=== PATIENT | female | born 1945 | race African-American/Black ===

== ENCOUNTER 2021-12-20 10:59 | Outpatient (CLI) | payer MEDICARE, SELFPAY ==
[2021-12-20 16:56] LABS: Cholesterol 234 mg/dL (0-200); HDL Direct 45 mg/dL; Triglycerides 102 mg/dL (<150)
[2021-12-20 17:07] LABS: LDL Cholesterol Direct 129 mg/dL
[2021-12-20 17:26] LABS: Thyroid Stimulating Hormone 0.931 uIU/mL (0.465-4.680)
[2021-12-23 06:23] LABS: Rapid Plasma Reagin Non-Reactive (NonReactive)
== END 2021-12-20 11:00 | disposition home or self-care (01) ==
LOC: ANHWCLAB 11:11
PROVIDERS: PCP Internal Medicine Infectious Disease; Referring Provider Internal Medicine Infectious Disease; Visit Provider Internal Medicine Infectious Disease
DX: E78.9 Disorder of lipoprotein metabolism, unspecified (principal); R41.3 Other amnesia
CPT/HCPCS: 36415; 80061; 82607; 84443; 86592

== ENCOUNTER 2022-09-09 10:11 | Outpatient (CLI) | payer MEDICARE, SELFPAY ==
--- NOTE | 2022-09-09 11:33 | ECG_ITS ---
Measurements Intervals [place] Rate: 90 P: 62 CO: 132 QRS: -30 QRSD: 83 T: 85 QT: 391 QTc: 480 Interpretive Statements SINUS RHYTHM VOLTAGE CRITERIA FOR LVH NONSPECIFIC T-WAVE ABNORMALITY BORDERLINE ECG NO PREVIOUS ECG AVAILABLE FOR COMPARISON Electronically Signed On 09-09-2022 16:22:14 PNEUMATIC [employer]ACK[employer] by Victor Hugo Lozada M.D.
[2022-09-09 11:58] LABS: Basophils Absolute Auto 0.1 K/mm3 (0.0-0.1); Basophils Percent Auto 1.3 % (0.2-1.2); Eosinophils Absolute Auto 0.2 K/mm3 (0-0.3); Eosinophils Percent Auto 3.8 % (0-4.4); Hemoglobin 13.9 g/dL (12.0-15.0); Immature Granulocyte Absolute 0.01 K/mm3 (0.00-0.031); Immature Granulocyte Percent A 0.2 % (0-0.5); Lymphocytes Absolute Auto 2.26 K/mm3 (0.9-3.2); Lymphocytes Percent Auto 40.7 % (18.3-44.2); Mean Corpuscular HGB Conc 31.6 g/dl (32-36); Mean Corpuscular Hemoglobin 26.5 pg (26-34); Mean Platelet Volume 11.9 fl (7.4-10.4); Monocytes Absolute Auto 0.4 K/mm3 (0.1-0.6); Monocytes Percent Auto 6.3 % (2.6-8.5); Neutrophils Absolute Auto 2.7 K/mm3 (1.3-6.7); Neutrophils Percent Auto 47.7 % (45.5-73.1); Platelet Count Result 212 k/mm3 (150-375); Red Blood Count 5.24 M/mm3 (4.2-5.4); Red Cell Distribution Width 13.8 % (11.5-14.5); White Blood Count 5.6 K/mm3 (4.5-10.0)
[2022-09-09 12:04] LABS: Albumin Level 3.9 g/dL (3.5-5.1)
[2022-09-09 12:24] LABS: Anion Gap 4 mmol/L (8-16); Blood Urea Nitrogen 16 mg/dL (7-17); Calcium 9.3 mg/dL (8.4-10.2); Carbon Dioxide 27 mmol/L (22-30); Chloride 104 mmol/L (98-107); Estimated Glomerular Filt Rate > 60; Glucose 372 mg/dL (65-110); Potassium 4.4 mmol/L (3.4-5.0); Sodium 135 mmol/L (137-145)
[2022-09-09 12:28] LABS: Urine Cotinine NEGATIVE
[2022-09-09 12:30] LABS: Hemoglobin A1C 11.4 % (<5.7)
== END 2022-09-09 10:12 | disposition home or self-care (01) ==
PROVIDERS: Anesthesiology; PCP Internal Medicine Infectious Disease; Visit Provider Orthopaedic Surgery
DX: M17.12 Unilateral primary osteoarthritis, left knee (principal); E11.9 Type 2 diabetes mellitus without complications; Z01.818 Encounter for other preprocedural examination; R94.31 Abnormal electrocardiogram [ECG] [EKG]
CPT/HCPCS: 36415; 80048; 80307; 82040; 83036; 85025; 86850; 86900; 86901; 87081; 93005

== ENCOUNTER 2023-01-21 08:39 | Outpatient (CLI) | payer MEDICARE, SELFPAY ==
[2023-01-21 15:18] LABS: Alanine Aminotransferase 16 U/L (6-35); Albumin Level 3.6 g/dL (3.5-5.1); Alkaline Phosphatase 94 U/L (38-126); Anion Gap 2 mmol/L (8-16); Aspartate Amino Transferase 26 U/L (14-36); Bilirubin,Total 0.4 mg/dL (0.2-1.3); Blood Urea Nitrogen 17 mg/dL (7-17); Calcium 8.9 mg/dL (8.4-10.2); Carbon Dioxide 30 mmol/L (22-30); Chloride 107 mmol/L (98-107); Cholesterol 142 mg/dL (0-200); Estimated Glomerular Filt Rate > 60; Glucose 177 mg/dL (65-110); HDL Direct 40 mg/dL; Potassium 3.9 mmol/L (3.4-5.0); Sodium 139 mmol/L (137-145); Triglycerides 98 mg/dL (<150)
[2023-01-21 15:29] LABS: LDL Cholesterol Direct 76 mg/dL
[2023-01-21 17:13] LABS: Creatinine Urine 169.1 mg/dL
[2023-01-21 17:16] LABS: MALB Creatinine Ratio 7.7 mg/g (0-30)
[2023-01-21 17:35] LABS: Hemoglobin A1C 11.7 % (<5.7)
[2023-01-21 18:06] LABS: Free T4 Free Thyroxine 1.16 ng/mL (0.78-2.19)
== END 2023-01-21 08:40 | disposition home or self-care (01) ==
LOC: ANHGOSHLAB 08:43
PROVIDERS: PCP Internal Medicine Infectious Disease; Visit Provider Internal Medicine Endocrinology, Diabetes & Metabolism
DX: E11.65 Type 2 diabetes mellitus with hyperglycemia (principal); E78.5 Hyperlipidemia, unspecified
CPT/HCPCS: 36415; 80053; 80061; 82043; 83036; 84439; 84443

== ENCOUNTER 2023-05-14 07:54 | Outpatient (CLI) | payer MEDICARE, SELFPAY ==
[2023-05-14 18:22] LABS: Basophils Absolute Auto 0.1 K/mm3 (0.0-0.1); Basophils Percent Auto 1.4 % (0.2-1.2); Eosinophils Absolute Auto 0.3 K/mm3 (0-0.3); Hematocrit 43.1 % (37.0-47.0); Hemoglobin 13.7 g/dL (12.0-15.0); Lymphocytes Absolute Auto 2.64 K/mm3 (0.9-3.2); Lymphocytes Percent Auto 47.3 % (18.3-44.2); Mean Corpuscular HGB Conc 31.8 g/dl (32-36); Mean Corpuscular Hemoglobin 26.8 pg (26-34); Mean Corpuscular Volume 84.3 fl (80-100); Mean Platelet Volume 12.1 fl (7.4-10.4); Monocytes Absolute Auto 0.4 K/mm3 (0.1-0.6); Monocytes Percent Auto 6.8 % (2.6-8.5); Neutrophils Absolute Auto 2.2 K/mm3 (1.3-6.7); Neutrophils Percent Auto 39.5 % (45.5-73.1); Platelet Count Result 260 k/mm3 (150-375); Red Blood Count 5.11 M/mm3 (4.2-5.4); Red Cell Distribution Width 13.8 % (11.5-14.5); White Blood Count 5.6 K/mm3 (4.5-10.0)
[2023-05-14 18:35] LABS: Anion Gap 10 mmol/L (8-16); Blood Urea Nitrogen 16 mg/dL (7-17); Calcium 9.7 mg/dL (8.4-10.2); Carbon Dioxide 23 mmol/L (22-30); Chloride 104 mmol/L (98-107); Cholesterol 250 mg/dL (0-200); Estimated Glomerular Filt Rate > 60; Glucose 65 mg/dL (65-110); HDL Direct 53 mg/dL; Potassium 4.4 mmol/L (3.4-5.0); Sodium 137 mmol/L (137-145); Triglycerides 74 mg/dL (<150)
[2023-05-14 18:45] LABS: LDL Cholesterol Direct 158 mg/dL
[2023-05-14 21:49] LABS: Hemoglobin A1C 7.6 % (<5.7)
== END 2023-05-14 07:55 | disposition home or self-care (01) ==
PROVIDERS: PCP Internal Medicine Infectious Disease; Visit Provider Internal Medicine Infectious Disease
DX: E11.65 Type 2 diabetes mellitus with hyperglycemia (principal); R63.4 Abnormal weight loss
CPT/HCPCS: 36415; 80048; 80061; 83036; 84443; 85025

== ENCOUNTER 2023-10-23 08:27 | Outpatient (CLI) | payer MEDICARE, SELFPAY ==
[2023-10-23 17:07] LABS: Cholesterol 207 mg/dL (0-200); HDL Direct 45 mg/dL; Triglycerides 104 mg/dL (<150)
[2023-10-23 17:18] LABS: LDL Cholesterol Direct 131 mg/dL
[2023-10-24 03:43] LABS: Hemoglobin A1C 7.4 % (<5.7)
== END 2023-10-23 08:28 | disposition home or self-care (01) ==
LOC: ANHGOSHLAB 08:29
PROVIDERS: PCP Internal Medicine Infectious Disease; Visit Provider Internal Medicine Infectious Disease
DX: E11.65 Type 2 diabetes mellitus with hyperglycemia (principal)
CPT/HCPCS: 36415; 80061; 83036

== ENCOUNTER 2023-10-27 08:22 | Outpatient (NON) | payer MEDICARE, MEDICAID, SELFPAY ==
[2023-10-27 19:10] LABS: Creatinine Urine 138.5 mg/dL
[2023-10-27 19:15] LABS: MALB Creatinine Ratio 80.9 mg/g (0-30)
== END 2023-10-27 08:23 | disposition home or self-care (01) ==
LOC: ANHGOSHLAB 08:24
PROVIDERS: PCP Internal Medicine Infectious Disease; Visit Provider Internal Medicine Infectious Disease
DX: E11.65 Type 2 diabetes mellitus with hyperglycemia (principal)
CPT/HCPCS: 82043

== ENCOUNTER 2024-11-06 21:54 | Emergency (ER) | payer MEDICARE, SELFPAY ==
--- NOTE | ~2024-11-06 | XR_ITS ---
XR hip RT 2V w AP pelvis Ordering provider: Michael Huang PA-C History: . Fall, R hip pain . Comparison: None. FINDINGS: BONES: No acute fracture or dislocation. HIP JOINT SPACES: Mild osteoarthritic changes seen bilaterally. SACROILIAC JOINT SPACES/LUMBAR SPINE: The sacroiliac joint spaces are normal. Mild degenerative carter es of the visualized lower lumbar spine. PUBIC SYMPHYSIS: Normal. SOFT TISSUES: Vascular calcifications. IMPRESSION: No acute osseous abnormality pelvis and right hip. Mild bilateral hip osteoarthritic changes. Reviewed, dictated and finalized at location A.
[2024-11-06 21:58] VITALS: BP 152/77; PULSE 87; RESP 16; TEMP 36.9; O2SAT 100
--- NOTE | 2024-11-06 23:13 | ED_ITS ---
HPI - Extremity Injury (Lower) General Chief Complaint: Extremity Injury, Lower Stated Complaint: fall, hip pain Time Seen by Provider: 11/06/24 22:58 Source: patient Mode of arrival: EMS Limitations: no limitations History of Present Illness HPI Narrative: This is a 79-year-old female who presents to the ED via EMS for chief complaint of fall with right hip pain. Patient states that she had a ground level fall today well cleaning up from dinner. States that she was in the kitchen and accidentally tripped over her own feet. States that this caused her to go down, primarily on the right side. She has pain to the right hip. Endorses history of chronic neuropathy but no new numbness or weakness to extremity. States she was unable to bear any weight on the right leg, and her daughter who is bedside was able to come to the house about 5 minutes after the injury. Related Data Home Medications ?Medication ?Instructions ?Recorded ?Confirmed ?Last Taken ?Type atorvastatin 40 mg tablet 40 mg PO DAILY 09/09/22 09/15/24 Unknown History empagliflozin 25 mg tablet 25 mg PO DAILY 09/09/22 09/15/24 Unknown History (Jardiance) lisinopril 5 mg tablet 5 mg PO DAILY 09/09/22 09/15/24 Unknown History naproxen sodium 220 mg capsule 660 mg PO PRN PRN Pain 09/09/22 09/15/24 Unknown History (Aleve) glimepiride 2 mg tablet 1 mg PO DAILY 06/01/24 09/15/24 Unknown History Allergies Allergy/AdvReac Type Severity Reaction Status Date / Time No Known Allergies Allergy Verified 09/15/24 08:34 Review of Systems 2 Review of Systems: All systems as dictated in HPI [facility] Past Medical History Medical History Cataract Acute arthritis Anxiety Anemia Family History Family History Mother Colon cancer Diabetes mellitus Social History Social History Smoking packs per day: 0.5 Smoking cigarettes per day: 10.0 Years smoked: 15 Smoking pack-years: 7.50 Smoking status: Former smoker Tobacco type: cigarettes Smoking end date: 07/04/22 Additional smoking assessment comments: VAPES- VAPED THIS MORNING. STATES NO NICOTINE IN VAPE Alcohol intake: current Alcohol use details: ONE DRINK PER MONTH Substance use: former Substance use type: marijuana Last use: 2021 Living arrangements: alone Spiritual care concerns: No Exam 2 Narrative: GENERAL: Well-appearing, well-nourished, and in no acute distress. HEAD: Normocephalic, atraumatic. EYES: PERRLA and EOMI. ENT: Nares clear, no rhinorrhea or epistaxis. Mucous membranes moist. Oropharynx without tonsillar hypertrophy exudate or other lesions. NECK: Supple. No adenopathy or masses. CHEST: No respiratory distress. Clear to auscultation. No wheezes rales or rhonchi HEART: Regular rate and rhythm. No murmur heard. Normal peripheral pulses. ABDOMEN: Soft, nontender, nondistended, normal active bowel sounds. MSK: Pain with log roll of the right hip. Patient is unable to actively flex the right hip. Pain with passive flexion. Neurovascularly intact distally. No pain with lower pole of the left hip. No tenderness to the bilateral knees or ankles. SKIN: Warm, dry, no rash. NEURO: Alert and oriented x4. No focal deficits. PSYCH: Normal mood and affect. Course Vital Signs Vital signs: Vital Signs Temperature 98.5 F 11/06/24 21:58 Pulse Rate 87 11/06/24 21:58 Respiratory Rate 16 11/06/24 21:58 Blood Pressure 152/77 H 11/06/24 21:58 Pulse Oximetry 100 11/06/24 21:58 Temperature 98.5 F 11/06/24 21:58 Pulse Rate 87 11/06/24 21:58 Respiratory Rate 16 11/06/24 21:58 Blood Pressure 152/77 H 11/06/24 21:58 Pulse Oximetry 100 11/06/24 21:58 MDM - Extremity Injury (Lower) MDM Narrative Medical decision making narrative: This is a 79-year-old female who presents to the ED for chief complaint of ground level fall that occurred today just prior to arrival. Fall was mechanical in nature. She has pain to the right hip. X-rays of the right hip and pelvis show no acute osseous findings. Patient was given morphine with good relief of pain here. Presentation was likely consistent with flare of right hip arthritis he due to the fall. Patient will be discharged in stable condition. Supportive measures discussed and return precautions given. Patient is understanding and agreeable with plan for discharge with PCP follow-up. Lab Data 11/07/24 00:42 11/07/24 00:42 Labs: Lab Results 11/07/24 Range/Units 00:42 WBC Pending RBC Pending Hgb Pending Hct Pending MCV Pending MCH Pending MCHC Pending RDW Pending Plt Count Pending MPV Pending Immature Gran % (Auto) Pending Neut % (Auto) Pending Lymph % (Auto) Pending [place] % (Auto) Pending Eos % (Auto) Pending Baso % (Auto) Pending Lymph # (Auto) Pending [place] # (Auto) Pending Eos # (Auto) Pending Baso # (Auto) Pending Abs Immat Gran (auto) Pending Absolute Neuts (auto) Pending Absolute Nucleated RBC Pending Nucleated RBC % Pending Sodium 139 (137-145) mmol/L Potassium 3.8 (3.4-5.0) mmol/L Chloride 109 H (98-107) mmol/L Carbon Dioxide 22 (22-30) mmol/L Anion Gap 8 (4-12) mmol/L BUN 18 H (7-17) mg/dL Creatinine 1.02 H (0.7-1.0) mg/dL Estim Creat Clear Calc Not Reportable Estimated GFR 53 L (59 - ) Glucose 95 (65-110) mg/dL Calcium 9.4 (8.4-10.2) mg/dL Total Bilirubin 0.7 (0.2-1.3) mg/dL AST 26 (14-36) U/L ALT 15 (6-35) U/L Alkaline Phosphatase 98 (38-126) U/L Total Protein 8.0 (6.3-8.2) g/dL Albumin 4.0 (3.5-5.1) g/dL Discharge Plan Discharge Clinical Impression: Degenerative joint disease of right hip, Fall Patient Disposition: Home, Self-Care Condition: Stable Instructions: Antibiotic Form Additional Instructions: Exam and imaging today are reassuring overall. No fractures detected. This is probably going to flare-up of the arthritis in the hip. Please take Tylenol arthritis for pain control. If you have any new or worsening symptoms please return to the ER for further evaluation. Patient Language: Swedish Prescriptions: New acetaminophen 500 mg tablet 500 mg PO Q6H PRN (Reason: pain) Qty: 30 0RF No Action Ozempic 0.25 mg or 0.5 mg (2 mg/3 mL) pen injector 0.5 mg subcut WEEKLY Qty: 3 0RF Gvoke HypoPen 2-Pack 1 mg/0.2 mL auto-injector 1 mg subcut ONCE Qty: 0.4 4RF Rx Instructions: may repeat once after 15 minutes if no response insulin degludec [Tresiba FlexTouch U-100] 100 unit/mL (3 mL) insulin pen 14 unit subcut DAILY Qty: 15 1RF lisinopril 5 mg tablet 5 mg PO DAILY Jardiance 25 mg tablet 25 mg PO DAILY naproxen sodium [Aleve] 220 mg Capsule 660 mg PO PRN PRN (Reason: Pain) atorvastatin 40 mg tablet 40 mg PO DAILY glimepiride 2 mg tablet 1 mg PO DAILY gabapentin 100 mg capsule 100 mg PO QHS Qty: 90 1RF Follow-up/Referrals: Scar,Niesha Long [Primary Care Provider] - Time of Disposition: 01:25
--- OUTSIDE RECORDS SUMMARY | 2024-11-06 23:14 | XMS_ITS | CONTINUITY OF CARE DOCUMENT ---
Author Name carley howe Address Unknown Organization [facility] Address [address] [place] [address] Phone [phone] Care Team Providers Care Meatman Name Role Phone carley howe Unavailable Unavailable INSURANCE PROVIDERS Payer name Policy type / Coverage type [place] [employer] ID [place] [employer] Medicare [id number] HE[employer] AND FAMILY [employer] Medicaid 1 [id number]
--- OUTSIDE RECORDS SUMMARY | 2024-11-06 23:14 | XMS_ITS | Data Portability ---
Author Organization [place] [facility], Main Office Address [address] [place] [address] Care Team Providers Care Surg Nurse Name Role Phone ABIGAIL DIXON Primary Care Provider [phone] Assessment Encounter Date Assessment Date Assessment LastModified by Organization Details LastModified Time 04/21/2023 04/21/2023 Patient returns arthritis both knees. She has gmug-vk-kynx change medially with varus deformity. Her motion is from about 5-110 degrees. We discussed knee replacement surgery. And she would benefit from this. However her hemoglobin A1c remains extremely high at 11.7. This significantly complicates her care. I will see her back on an as-needed basis. If she gets her hemoglobin A1c down we can discuss knee replacement surgery and schedule her for that. [email or web address] Not available 04/21/2023 10:00:56 09/04/2023 09/04/2023 The patient has severe primary osteoarthritis both knee joints. At her request under sterile conditions I injected both knee joints in the office today with 4 cc 0.5% bupivacaine and 20 mg of Kenalog each. Patient tolerated procedure well. I will see her back as needed we can do this again in 3 months if necessary she voiced understanding agrees above plan she will call for any further problems difficulties or questions. [email or web address] Not available 09/04/2023 11:12:52 Plan of Treatment Reminders Order Date Submit Date Provider Last Modified By Organization Details Last Modified Time Details Appointments None recorded. Lab lipid panel, serum 2022 023 [facility] (Lab), [address] [place] [address], [address], 3 04:31:33 TSH, serum or plasma [address] (Lab), [address] [place] [address], [place], [address], 3 09:24:35 T4, free, serum [address] (Lab), [address] [place] [address] [address], [place], [address], 3 09:24:35 CMP, serum or plasma 2022 023 [facility] (Lab), [address] [place] [address] [address], [place], [address], 3 04:31:33 HbA1c (hemoglobin A1c), blood 2022 023 [facility] (Lab), [address] [place] [address] [address], [place], [address], 3 04:31:33 microalbumi n/creatinin e, mass ratio, urine [address] (Lab), [address] [place] [address] [address], [place], [address], 3 09:24:35 lipid panel, serum [address], [facility], [place], [address], 3 09:52:40 TSH + free T4, serum 2022 023 [facility], [address] [place] [address] [address], [place], [address], 3 00:49:05 HbA1c (hemoglobin A1c), blood [address], [address] [place] [address] Rd, [address], [place], [address], 3 11:12:35 CMP, serum or plasma [address], [address] [place] [address] Rd, [address], [place], [address], 3 11:12:36 microalbumi n/creatinin e, mass ratio, urine 2022 023 [facility], [address], [place], [address], 3 11:12:36 Referral None recorded. Procedures injection/a spiration joint/bursa (PROC) 2023 024 [email or web address] In-Office Order, Internal Use Only DO Not Attach Compendium DO Not Attach Compendium, Do Not Delete/merge, [id number] 4 10:37:02 knee aspiration/ injection (PROC) 2022 023 [email or web address] In-Office Order, Internal Use Only DO Not Attach Compendium DO Not Attach Compendium, Do Not Delete/merge, [id number] 3 09:52:16 Surgeries None recorded. Imaging XR, knee 2022 023 [email or web address] [facility] [place], [address], [place], [address], 3 10:34:45 Medication Orders bupivacaine HCl 0.5 % (5 mg/mL) injection solution 2023 024 [email or web address] [address] [facility], [address] [place] [address], [id number], 4 11:13:52 Kenalog 10 mg/mL suspension for injection 2023 024 [place] [address] [facility], [address] [place] [address], [id number], 4 11:13:52 Synvisc-One 48 mg/6 mL intra-artic ular syringe 2022 023 [email or web address] [facility], [address] [place] [address], [id number], 3 09:57:07 Ozempic 0.25 mg or 0.5 mg (2 mg/1.5 mL) subcutaneou s pen injector 2022 023 [facility], [address] [place] [address], [id number], 3 12:38:29 Tresiba FlexTouch U-200 insulin 200 unit/mL (3 mL) subcutaneou s pen 2022 023 [facility], [address] [place] [address], [id number], 3 13:17:01 metformin ER 500 mg tablet,exte nded release 24 hr [email or web address] [facility], [address] [place] [address], [id number], 3 09:30:01 glimepiride 2 mg tablet 2022 023 [facility], [address] [place] [address], [id number], 3 09:29:47 Trulicity 0.75 mg/0.5 mL subcutaneou s pen injector 2022 023 [email or web address], [address] [place] [address], [id number], 3 09:30:25 Trulicity 1.5 mg/0.5 mL subcutaneou s pen injector 2022 023 [email or web address], [address] [place] [address], [id number], 3 09:30:30 OneTouch Ultra Test strips 2022 023 [facility], [address] [place] [address], [id number], 3 10:51:18 Patient TargetsNo targets recorded. Patient InstructionsNo instructions recorded. Reason for Referral None Reported. Results Created Date Observation Date Name Description Value Unit Range Abnormal Flag Note LastModifiedBy Organization Detail LastModifiedTime 07/02/20 22 XR, knee No observ ation record ed. [id number] [facility] [place] [address], [place], [address], 10/02/2022 21:13:42 04/21/20 23 XR, knee No observ ation record ed. [email or web address] [facility] [place] [address], [place], [address], 04/21/2023 10:01:14 Result Notes None recorded. Problems Name Problem SNOMED Code Status Onset Date Resolution Date Notes Provider Name and Address Organization Details Recorded Time Osteoarthr itis of left knee joint 4612098429171 09 Active 2021 Not Available [facility] 3 21:12:41 Osteoarthr itis of right knee joint 8703927048029 00 Active 2021 Not Available [facility] 3 21:12:41 Osteoarthr itis 375184406 Active 2021 Not Available [facility] 3 21:12:41 Pain of bilateral knee joints 7901251735646 04 Active 2021 Not Available [facility] 3 21:12:41 Uncontroll ed type 2 diabetes mellitus 187747873 Active 2022 Ana Maria Wallace MD [address], [facility] [address], [place], [address] , [employer] 3 09:44:25 Dyslipidem ia 387500998 Active 2022 Ana Maria Wallace MD [address], [facility] [address], [place], [address] , [employer] 3 09:49:27 Bilateral osteoarthr itis of knees 3974702058733 07 Active 2023 Letty Louie CNA null, [facility] 10:35:39 Problem Notes None recorded. Procedures Surgical History Date Name Laterality Status Provider Name and Address Organization Details Recorded Time 04/21/2023 Ortho - Visc completed Viral Bennett MD [address], [address], [place], [address], [facility] 04/21/2023 09:58:41 Imaging Results Imaging Date Name Status LastModified by Organiz ation Details LastModified Time 07/02/2022 XR, knee completed [id number] [facility] [place] [address] [facility] [address], [place], [address], 10/02/2022 21:13:42 04/21/2023 XR, knee completed [email or web address] [facility] [place] [address] [facility] [address], [place], [address], 04/21/2023 10:01:14 Procedure Notes None recorded. Medical Equipment None Reported. Allergies No known drug allergies Medications Name Sig Start Date Stop Date Status Note LastModified by Organization Details LastModified Time atorvastati n 40 mg tablet TAKE ONE TABLET BY MOUTH EVERY NIGHT AT BEDTIME TO LOWER CHOLESTER OL active Not Available Not Available No t Available promethazin e-DM 6.25 mg-15 mg/5 mL oral syrup TAKE 5 ML BY MOUTH EVERY 4 HOURS NEEDED FOR COUGH active Not Available Not Available No t Available prednisone 10 mg tablet TAKE ONE TABLET BY MOUTH THREE TIMES DAILY FOR 3 DAYS, THEN ONE TABLET TWICE DAILY FOR 2 DAYS, THEN ONE TABLET FOR ONE DAY 10/11 completed Not Available Not Available Not Available meloxicam 15 mg tablet TAKE 1 TABLET BY MOUTH EVERY DAY 10/11 completed Not Available Not Available Not Available bupivacaine HCl 0.5 % (5 mg/mL) injection solution Take 40 mg by injection route. 2023 active Not Available Not Available Not Avai lable tramadol 50 mg tablet TAKE 1 TABLET BY MOUTH EVERY 6 HOURS NEEDED 12/20 completed Not Available Not Available Not Available glimepiride 2 mg tablet TAKE TWO TABLETS BY MOUTH TWICE A DAY WITH MEALS 04/21 completed Not Available Not Available Not Available glimepiride 1 mg tablet TAKE ONE TABLET DAILY WITH A MEAL active Not Available Not Available No t Available baclofen 20 mg tablet TAKE 1 TABLET BY MOUTH TWICE DAILY 10/11 completed Not Available Not Available Not Available ketorolac 0.5 % eye drops PLACE ONE DROP IN THE RIGHT EYE THREE TIMES DAILY FOR 2 WEEKS, THEN PLACE ONE DROP TWICE DAILY FOR 2 WEEKS active Not Available Not Available No t Available prednisone 10 mg tablets in a dose pack Take 1 tab by mouth, 3 times a day for 3 daysTake 1 tab by mouth 2 times a day for 2 daysTake 1 tab by mouth once a day for 1 day 10/11 completed Not Available Not Available Not Available prednisolon e acetate 1 % eye drops,suspe nsion PLACE ONE DROP INTO THE RIGHT EYE TWICE DAILY active Not Available Not Available No t Available pravastatin 10 mg tablet TAKE ONE TABLET BY MOUTH EVERY DAY TO LOWER CHOLESTER OL active Not Available Not Available No t Available ciprofloxac in 0.3 % eye drops active Not Available Not Available No t Available OneTouch Ultra Test strips Take 1 strip twice a day by miscell. route before meals for 90 days. 2022 active Not Available Not Available Not Avai labantoinette Kenalog 10 mg/mL suspension for injection Take 40 mg by injection route. 2023 active [facility]: [phone]- 20 Not Available Not Available Not Available cephalexin 500 mg capsule TAKE ONE CAPSULE BY MOUTH THREE TIMES DAILY 12/20 completed Not Available Not Available Not Available alcohol swabs USE TO CLEAN THE INJECTION SITE OF INSULIN AND WHEN CHECKING BLOOD SUGAR ONCE DAILY active Not Available Not Available No t Available lisinopril 5 mg tablet TAKE ONE TABLET BY MOUTH EVERY DAY FOR BLOOD PRESSURE AND KIDNEY PROTECTIO N active Not Available Not Available No t Available diclofenac sodium 50 mg tablet,bimal yed release TAKE 1 TABLET BY MOUTH TWO TIMES DAILY NEEDED FOR PAIN 10/11 completed Not Available Not Available Not Available gabapentin 100 mg capsule TAKE ONE CAPSULE BY MOUTH EVERY NIGHT AT BEDTIME FOR NERVE PAIN active Not Available Not Available No t Available metformin ER 500 mg tablet,exte nded release 24 hr Take 1 tablet every day by oral route at dinner for 90 days. active Not Available Not Available No t Available naproxen 500 mg tablet Take 1 tablet twice a day by oral route. 10/11 completed Not Available Not Available Not Available gabapentin 10/11 completed Not Available Not Available Not Available lidocaine (PF) 5 mg/mL (0.5 %) injection solution Take 30 mg by injection route. 10/11 completed Not Available Not Available Not Available Synvisc-One 48 mg/6 mL intra-artic ular syringe Take 6 mL by intraarti cular route, for bilateral knee osteoarth ritis. 2023 active Not Available Not Available Not Avai lable OneTouch Delica Lancets 33 gauge 12/20 completed Not Available Not Available Not Available ropivacaine (PF) 5 mg/mL (0.5 %) injection solution Take 40 mg by injection route. 10/11 completed Not Available Not Available Not Available Jardiance 25 mg tablet TAKE 1 TABLET BY MOUTH ONCE DAILY IN THE MORNING FOR DIABETES active Not Available Not Available No t Available Trulicity 1.5 mg/0.5 mL subcutaneou s pen injector Inject 1.5 mg every week by subcutane ous route at dinner for 90 days. 04/21 completed Not Available Not Available Not Available Trulicity 0.75 mg/0.5 mL subcutaneou s pen injector Inject 0.75 mg every week by subcutane ous route at dinner for 30 days. 04/21 completed Not Available Not Available Not Available Tresiba FlexTouch U-200 insulin 200 unit/mL (3 mL) subcutaneou s pen INJECT 14 UNITS SUBCUTANE OUSLY EVERY DAY FOR DIABETES active Not Available Not Available No t Available OneTouch Verio Flex Meter USE TO CHECK BLOOD SUGAR active Not Available Not Available No t Available TRUEplus Pen Needle 31 gauge x 5/16 USE DIRECTED active Not Available Not Available No t Available Ozempic 0.25 mg or 0.5 mg (2 mg/1.5 mL) subcutaneou s pen injector Inject 0.5 mg every week by subcutane ous route at dinner for 90 days. 04/21 completed Not Available Not Available Not Available OneTouch Ultra Blue Test Strip 12/20 completed Not Available Not Available Not Available OneTouch Delica Plus Lancet 30 gauge USE TO CHECK BLOOD SUGAR ONCE DAILY active Not Available Not Available No t Available Gvoke HypoPen 2-Pack 1 mg/0.2 mL subcutaneou s auto-inject or INJECT 1MG SUBCUTANE OUSLY ONCE, MAY REPEAT ONCE AFTER 15 minutes if no response active Not Available Not Available No t Available Ozempic 0.25 mg or 0.5 mg (2 mg/3 mL) subcutaneou s pen injector INJECT 0.25MG SUBCUTANE OUSLY EVERY WEEK DIRECTED FOR DIABETES active Not Available Not Available No t Available Vitals Date Recorded Body mass index (BMI) Body height Body weight Provider Name and Address Organization Details Last Updated DateTime 07/02/2022 32.5 kg/m2 149.86 cm 81764.37 g Not Available [facility] 10/02/2022 21:12:13 Date Recorded Body height Body mass index (BMI) Body weight Heart rate Body temperature Systolic blood pressure Diastolic blood pressure Provider Name and Address Organization Details Last Updated DateTime 3 149.86 cm 32.9 kg/m2 02868.5 6 g 80 /min 97.8 [degF] 158 mm[Hg] 80 mm[Hg] Bela Agarwal CMA [employer] 3 09:22:00 Date Recorded Body height Body mass index (BMI) Body weight Body temperature Heart rate Systolic blood pressure Diastolic blood pressure Provider Name and Address Organization Details Last Updated DateTime 3 149.86 cm 32 kg/m2 36360.7 5 g 97.6 [degF] 82 /min 169 mm[Hg] 89 mm[Hg] FAVIAN Watters [employer] 3 09:03:59 Date Recorded Body height Body mass index (BMI) Body weight Provider Name and Address Organization Details Last Updated DateTime 04/21/2023 149.86 cm 32.5 kg/m2 95750.37 g Letty Louie CNA [email or web address] 04/21/2023 09:29:30 Date Recorded Body height Body mass index (BMI) Body weight Provider Name and Address Organization Details Last Updated DateTime 09/04/2023 149.86 cm 30.5 kg/m2 83231.45 g Letty Louie CNA [facility] 09/04/2023 10:35:03 Social History Question Answer Notes LastModified by Organizat ion Details LastModified Time Tobacco Smoking Status Current Every Day Smoker Not Available [employer] 10/02/2022 21:11:53 What Is Your Level Of Alcohol Consumption? Occasional [email or web address] Information not available 04/21/2023 How Much Tobacco Do You Smoke? 1 PPD [id number] Information not available 10/02/2022 Sex: Unknown Functional Status None recorded. Mental Status None recorded. Family History Relationship Description Onset Age of this Age Resolved Age Notes LastModified by Organization Details LastModified Time Mother Family history of malignant neoplasm [id number] Not available 10/02/2022 21:12:07 Mother Hypertensive disorder [id number] Not available 10/02/2022 21:12:07 Mother Diabetes mellitus [id number] Not available 10/02/2022 21:12:07 Daughter Diabetes mellitus [id number] Not available 10/02/2022 21:12:07 Medical History Condition Response ARTHRITIS Y DIABETES, TYPE Y HYPERTENSION Y Gynecological HistoryNo gynecological history recorded. Obstetrics History GPAL:G 0 P 0 0 0 0 Past Encounters Encounter ID Performer Location Encounter Start Date Encounter Closed Date Diagnosis/Indication Diagnosis SNOMED-CT Code Diagnosis ICD10 Code Diagnosis Note [id number] [facility] [place] [address] [place] [address] 12/20/2021 00:00:00 12/20/2021 11:03:04 [id number] [facility] [place] [address] [place] [address] 01/17/2022 00:00:00 01/17/2022 10:54:21 [id number] [facility] [place] [address] [place] [address] 04/01/2022 00:00:00 04/01/2022 09:27:29 [id number] [facility] [place] [address] [place] [address] 07/02/2022 00:00:00 07/02/2022 14:09:47 [id number] Ana Maria Wallace MD [facility] [place] [address] [place] [address] 10/11/2022 08:53:11 10/11/2022 10:10:16 Uncontrolled type 2 diabetes mellitus 048909052 E11.65 A1C 11.6% per daughter from 07/25- Encouraged patient to test sugars prebreakfa st and predinner and at times before bedtime to maintain log for review at return visit. Recommend she take her glimepirid e on glucose scale according to glucose checks. If sugars are running under 100 mg/dL hold glimepirid e, if 101-140 mg/dL take half tablet, if 141-180 mg/dL take full tablet and if over 180 mg/dL take 2 tablets for the full 4 mg of glimepirid e up to twice daily before meals. If sugars are consistent ly over 180 mg/dL she was advised to contact clinic and notify me so we can modify changes. Patient advised to bring glucose meter at return visit for review. Continue jardiance 25 mg daily as patient tolerating well. Recommende d GLP1 agonist therapy as she is having trouble at times with cravings of sweets and portion control. 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 She has no hx of pancreatit is or medullary thyroid cancer and is willing to trial on a GLP1 agonist therapy. She was advised to contact clinic if she experience s any nausea, vomiting or significan t thyroid pain / swelling or abdominal pain so we can discuss and discontinu e and potentiall y look to other therapy. Will trial on trulicity 0.75 mg SQ weekly x 4 weeks then increase to 1.5 mg SQ weekly with largest meal of that day as tolerated. Restart metformin for insulin sensitizat ion. Discussed carb counting and how to read food labels. Recommende d patient to utilize the diabetesfo Counsyl.Tradiio from the ADA website to help with food preparatio n as this presents ideal carb content per meal so this will make carb counting much easier for patient. Recommende d she incorporat e natural insulin pmp s such as pears, apples, cinnamon, trena and sweet potatoes to help mobilize her endogenous insulin. Recommende d up to 150 minutes of moderate level activity/e xercise weekly. Dyslipidemia 920630616 E 78.5 Send for lipid panel and thyroid panel to screen for underlying thyroid ds. Spent up to 45 minutes preparing to see the patient (eg, review of tests), obtaining and/or reviewing separately obtained history, performing a medically appropriat e examinatio n and evaluation , counseling and educating the patient, ordering medication s, tests, along with documentin g clinical informatio n in the electronic health record, independen tly interpreti ng results and communicat ing results to the patient. RTC in 3 months. Patient was provided a handwritte n lab order which contains our fax number. If she chooses to go outside of the [facility] to obtain labwork she was advised to provide our fax number and my informatio n to the lab she will be obtaining labwork from in order to have her labs properly forwarded over for me to review so there is no loss of follow up due to use of outside network. She was also advised to contact our clinic informing us that she has completed her labwork so we are aware we will need to reach out to the appropriat e laboratory to request her results be forwarded to us so I might have the ability to review and make further medical decision making in her case. She voiced understand ing. Thank you for this consultati on. [id number] Ana Maria Wallace MD [facility] [place] [address] [place] [address] 01/23/2023 08:56:14 01/23/2023 09:29:47 Uncontrolled type 2 diabetes mellitus [id number] E11.65 A1C 11.7% no improvemen t- patient not taking her glucose tests and she is eating whatever she wants. Recommende d GLP1 agonist therapy as she is having trouble at times with cravings of sweets and portion control. 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 She has no hx of pancreatit is or medullary thyroid cancer and is willing to trial on a GLP1 agonist therapy. She was advised to contact clinic if she experience s any nausea, vomiting or significan t thyroid pain / swelling or abdominal pain so we can discuss and discontinu e and potentiall y look to other therapy. Will trial on ozempic 0.25 mg SQ weekly x 4 weeks then increase to 0.5 mg SQ weekly with largest meal of that day as tolerated. Will transition to tresiba due to long acting duration of effect and decreased frequency of hypoglycem ia associated with it. Start at 14 units once daily at bedtime and patient advised to titrate up by 2 units every 4 days until fasting glucose is running 90-120 mg/dL consistent ly. Continue glimepirid e scale. Continue jardiance 25 mg daily as patient tolerating well. Continue metformin for insulin sensitizat ion. Discussed carb counting and how to read food labels. Recommende d patient to utilize the diabetesApture.Tradiio from the ADA website to help with food preparatio n as this presents ideal carb content per meal so this will make carb counting much easier for patient. Recommende d she incorporat e natural insulin pmp s such as pears, apples, cinnamon, trena and sweet potatoes to help mobilize her endogenous insulin. Recommende d up to 150 minutes of moderate level activity/e xercise weekly. I had a very thorough discussion regarding diabetes and complicati ons of diabetes. Risks, benefits and side effects of all medication s and therapy up to and including were discussed in detail with patient. This included not following physician recommenda tions. Patient is alert and oriented times four. Patient made their own informed and educated decision regarding diabetic care and control. Dyslipidemia 482328178 E 78.5 Continue on statin therapy as LDL in range. Spent up to 25 minutes preparing to see the patient (eg, review of tests), obtaining and/or reviewing separately obtained history, performing a medically appropriat e examinatio n and evaluation , counseling and educating the patient, ordering medication s, tests, along with documentin g clinical informatio n in the electronic health record, independen tly interpreti ng results and communicat ing results to the patient. RTC in 3 months. Patient was provided a handwritte n lab order which contains our fax number. If she chooses to go outside of the [facility] to obtain labwork she was advised to provide our fax number and my informatio n to the lab she will be obtaining labwork from in order to have her labs properly forwarded over for me to review so there is no loss of follow up due to use of outside network. She was also advised to contact our clinic informing us that she has completed her labwork so we are aware we will need to reach out to the appropriat e laboratory to request her results be forwarded to us so I might have the ability to review and make further medical decision making in her case. She voiced understand ing. [id number] Viral Bennett MD [facility] [place] [address] [place] [address] 04/21/2023 09:14:01 04/21/2023 10:34:45 Osteoarthritis of left knee joint [id number] 08361 M17.12 Osteoarthr itis of right knee joint [id number] M17.11 Pain of bi lateral knee joints [id number] M25.561 M25.[id number] [facility] [address] [place] [address] 09/04/2023 10:26:30 09/04/2023 13:51:16 Pain of bilateral knee joints [id number] M25.561 M25.562 Bilateral osteoarthritis of knees [id number] M17.0 Health Concerns Section Related Observation LastModified by Organization Detai ls LastModified Time None Recorded Concern Status LastModified by Organization Details LastModified Time None Recorded Advance Directives Directive None Recorded Payers Encounter Date Sequence Insurance Name Policy Number Policy Ash Covered Member ID Ash Member ID Guarantor Name 10/11/2022 1 [place] Deuce Schulte [id number] Deuce Schulte 10/11/2022 2 [place] Deuce Schulte [id number] Deuce Schulte 01/23/2023 2 [place] Deuce Schulte [id number] Deuce Schulte 01/23/2023 1 [facility] (MEDICARE REPLACEMENT/AD VANTAGE - PPO) [id number] Deuce Schulte [id number] Deuce Schulte 04/21/2023 2 [place] Deuce Schulte [id number] Deuce Schulte 04/21/2023 1 [facility] (MEDICARE REPLACEMENT/AD VANTAGE - PPO) [id number] [address] Schulte [id number] Deuce Schulte 09/04/2023 2 [employer] [place] ON OR AFTER 2020 (MEDICAID REPLACEMENT - HMO) Deuce Schulte [id number] Deuce Schulte 09/04/2023 1 [employer] (MEDICARE REPLACEMENT HMO) Deuce Schulte [id number] Deuce Schulte Notes Date Note Type Note Provider Name and Address Organization Details Recorded Time 07/02/2022 text/html KneeReported bypatient.Location:[facility] Quality:aching; throbbing; dull Severity:moderate Duration:continuous since onset Timing:chronic Alleviating Factors:sitting; lying down; rest; elevation Aggravating Factors:bending/squa tting; weight bearing Associated Symptoms:no weakness; no numbness; no tingling; no redness; no ecchymosis; no catching/locking; no popping/clicking; no buckling; no instability; no radiation down leg; no drainage; no fever; no chills; no weight loss; no change in bowel/bladder habits;swelling;warm th;grinding Not Available [facility] 07/02/2022 14:09:47 10/11/2022 text/html 77 yo female com es in as referral by courtesy of Dr Dixon for management and evaluation of uncontrolled type 2 DM (A1C of 11.6% from Jul 2022) and dyslipidemia. She was diagnosed 10 years ago. She is now using lemon and apple cider vinegar and states this has helped with her inflammation. She is taking glimepiride daily along with jardiance 25 mg daily. She is not testing her sugars- she needs a new glucose meter. I do not have a glucose log to review Meal regimen:breakfast: egg and sausage or baconlunch: yogurt, cottage cheese and peachesdinner: usually home cooked She had yogurt and banana this morning. she will snack on cookies and ice cream on occasion- she does drink a lot of water during the day Complications:No CAD or strokeLast eye exam: no retinopathy or edema; she has cataractsmild neuropathy, no sores, ulcers or amputations Ana Maria Wallace MD [address], [place], [address], [email or web address] 10/11/2022 10:41:43 01/23/2023 text/html 77 yo female com es in for follow up in management of poorly controlled type 2 DM (A1C of 11.7% up from 11.6%) at her initial visit patient advised to start on glimepiride scale, and we had her continue jardiance 25 mg daily as patient was tolerating well. We continued metformin and patient was provided glucose sensor for better knowledge of control. She is not testing her glucose regularly. She is eating sugars on a daily basis with her coffee. She denies any palpitations, chest pain, headaches, or any new concerns. She does have a home care provider come to her home on Fri// weekly so can have help with injections. labs from 01/21/23:a1c 11.7%microalbumin 7.7 ug/mg142/98/40/76TSH of 1.320 uIU/ml Ana Maria Wallace MD [address], [place], [address], [email or web address] 01/23/2023 11:03:49 04/21/2023 text/html Patient returns arthritis both knees. She has cglp-jo-sktv change and would benefit from knee replacement surgery. However her diabetes she has diabetes and her A1c typically runs high. She got good relief the last injection hyaluronic acid which was about 10 months ago. She would like to consider that again. Viral Bennett MD [address], [place], [address], [employer] 04/21/2023 10:02:08 09/04/2023 text/html Patient returns complaining of bilateral knee pain she has gmyd-op-azfu changes with varus deformity severe osteoarthritis is noted in the medial compartments of both knees. It has been over 4 months since her last cortisone injection she would like these reinjected today. Denies any new trauma or injury to either knee. She also has obwb-od-mitv primary osteoarthritis noted in the lateral facet joints of the patellofemoral articulations bilaterally. Has no erythema effusion no signs of infection states she has pain with ambulation squatting kneeling going up and down stairs. The shots do help she has declined prescription oral anti-inflammatories or total knee arthroplasty at this time and previously. She would like to have both knees injected again today. SUNSHINE Faith [address] [facility], [place], [address], [facility] [employer] 09/04/2023 11:13:04 OBGyn Episode No OBEpisode recorded.
[2024-11-06] MEDS: ONDANSETRON INJ 4 MG/2 ML VIAL IV PUSH (23:48)
[2024-11-06] MEDS: MORPHINE SULFATE (*CRX) 2 MG/ML INJ IV PUSH (23:49)
[2024-11-07 00:03] VITALS: BP 153/79; PULSE 82; RESP 18; O2SAT 98
[2024-11-07 01:01] LABS: Alanine Aminotransferase 15 U/L (6-35); Alkaline Phosphatase 98 U/L (38-126); Anion Gap 8 mmol/L (4-12); Aspartate Amino Transferase 26 U/L (14-36); Bilirubin,Total 0.7 mg/dL (0.2-1.3); Blood Urea Nitrogen 18 mg/dL (7-17); Calcium 9.4 mg/dL (8.4-10.2); Carbon Dioxide 22 mmol/L (22-30); Chloride 109 mmol/L (98-107); Estimated Glomerular Filt Rate 53; Glucose 95 mg/dL (65-110); Potassium 3.8 mmol/L (3.4-5.0); Sodium 139 mmol/L (137-145)
[2024-11-07 02:12] VITALS: BP 146/73; PULSE 79; RESP 15; O2SAT 99
[2024-11-07 02:14] VITALS: BP 146/73; PULSE 79; RESP 15; O2SAT 99
== END 2024-11-07 02:15 | disposition home or self-care (01) ==
PROVIDERS: Emergency Provider Physician Assistant; PCP Internal Medicine Infectious Disease
DX: S79.911A Unspecified injury of right hip, initial encounter (principal); M16.11 Unilateral primary osteoarthritis, right hip; E11.40 Type 2 diabetes mellitus with diabetic neuropathy, unspecified; Z87.891 Personal history of nicotine dependence; Z86.2 Personal history of diseases of the blood and blood-forming organs and certain disorders involving the immune mechanism; Z79.84 Long term (current) use of oral hypoglycemic drugs; Z79.4 Long term (current) use of insulin; Z79.85 Long-term (current) use of injectable non-insulin antidiabetic drugs; W01.0XXA Fall on same level from slipping, tripping and stumbling without subsequent striking against object, initial encounter
CPT/HCPCS: 36415; 73502; 80053; 96374; 96375; 99284; J2270; J2405